=== PATIENT | male | born 1980 | race Caucasian/White ===

== ENCOUNTER 2024-03-26 15:11 | Emergency (ER) | payer SELFPAY ==
[~2024-03-26] VITALS: Ht 185.4 cm; Wt 102.8 kg
[2024-03-26 15:11] VITALS: BP 134/97; TEMP 97.3; O2SAT 100
[2024-03-26] MEDS ORDERED: VENTAER INH (15:38)
[2024-03-26] MEDS ORDERED: ELIM5CRE2 TOP (18:44)
== END 2024-03-26 18:49 | disposition home or self-care (01) ==
LOC: M ED 15:11
DX: B86 Scabies (principal); J45.909 Unspecified asthma, uncomplicated; F17.210 Nicotine dependence, cigarettes, uncomplicated; Z79.51 Long term (current) use of inhaled steroids